=== PATIENT | female | born 1930 | race Caucasian/White ===

== ENCOUNTER 2016-12-12 14:52 | Inpatient (IN) ==
[2016-12-12] MEDS ORDERED: Nitroglycerin 0.4 MG TAB.SUBL SL PRN (16:59)
[2016-12-12] MEDS ORDERED: Naloxone 0.4 MG/ML INJ IVP PRN (17:20)
[2016-12-12] MEDS ORDERED: Ondansetron 4 MG/2 ML VIAL IVP PRN (17:20)
[2016-12-12] MEDS ORDERED: *HR* Morphine 2 MG/ML SYRINGE IVP PRN (17:20)
[2016-12-12] MEDS ORDERED: Dextrose Gel 15 GM PO PRN ×2 (17:56)
[2016-12-12] MEDS ORDERED: *HR* Dextrose 50 % in Water (Syg) 50 ML SYRINGE IVP PRN (17:56)
[2016-12-12] MEDS ORDERED: D5% in Water 1,000 ML IVC PRN (17:56)
[2016-12-12] MEDS ORDERED: 0.9 % Sodium Chloride 1,000 ML IVC SCH (18:00)
--- NOTE | 2016-12-12 18:06 | Internal Med History&Physical ---
<Bhupinder Neil - Last Filed: 12/12/16 18:30> Date of Encounter: 12/12/16 Time of Encounter: 17:59 Assessment and Plan (1) Hip fracture Current visit: Yes Status: Acute Patient suffered ground level fall this afternoon resulting in an impacted subcapital femoral neck fracture with anterior apex angulation. She is to undergo surgical procedure to fix tomorrow. Admit to inpatient Continuous telemetry Continuous SPO2 monitoring Continuous oxygen therapy to titrate SPO2 above 92% Maintain bedrest Placement of a catheter, send urinalysis Start cardiac/diabetic diet. Nothing by mouth after midnight for surgery in the morning Start 0.9% normal saline IV fluid at 60 mL per hour [place] one tablet when necessary every 4 hours for moderate pain Morphine 1 mg every 4 hours when necessary for severe pain Zofran for nausea BMP, CBC in the a.m. DVT prophylaxis-start mechanical prophylaxis for now. Plan is to implement Lovenox 40 mg subcutaneous postoperative surgery. Instead of 40 mg subcutaneous Lovenox daily 0600 Preop risk factors were reviewed. Pertinent comorbidities include coronary artery disease, diabetes mellitus, COPD. On chart review and from patient review there is not any admissions for respiratory failure. Coronary artery disease history includes LA 2, one in 2000 and one in 2006, she has a total of 4 stents no recent heart history. Most recent echo in 2012 shows an EF of 65%. Perioperatively the patient is at moderate risk due to cardiopulmonary history for an intermediate risk procedure. Qualifiers: Encounter type: initial encounter Fracture type: closed Laterality: left Qualified Code(s): S72.002A - Fracture of unspecified part of neck of left femur, initial encounter for closed fracture (2) Diabetes mellitus Current visit: Yes Status: Chronic Patient has history of chronic type 2 diabetes that is managed with long-acting GLARGINE insulin 6 units every morning. Plan is continue home dose of glargine , and add low-dose sliding scale insulin coverage, before meals at bedtime Accu- Cheks, diabetic/cardiac diet. Hypoglycemia protocol implemented. Qualifiers: Diabetes mellitus type: type 2 Diabetes mellitus complication status: without complication Diabetes mellitus intermediate insulin use: with intermediate use Qualified Code(s): E11.9 - Type 2 diabetes mellitus without complications ; Z79.4 - long term care phlebotomist (current) use of insulin (3) DVT prophylaxis Current visit: Yes Status: Acute Due to fracture patient is expected to have prolonged bedrest and immobility. This places her at high risk for DVT. She will be placed on Lovenox subcutaneous 40 mg daily. However at this time she will be placed on mechanical DVT prophylaxis and Lovenox will not be started until tomorrow evening after surgery Internal Medicine - H&P: HPI Chief complaint: Fall resulting in a hip fracture Admitted From: Home Plans for Post Hospital Care: Transfer Inp Rehab Fac History of present illness: Ms. Isaacs is a 86 year old female with a PMH of arthritis, COPD, asthma, CAD with LA in 2000 in 2006 resulting in 4 stents, dementia, type 2 diabetes, fibromyalgia, GERD, HTN, hypothyroidism, depression. Additionally she has had a right total hip arthroplasty, left knee arthroscopy, cataract surgery, cholecystectomy, appendectomy, tonsillectomy,DNC. She is being admitted to [facility] from [facility] is a result of a ground-level fall resulting in hip fracture. All information obtained from chart review and patient report. She reports that she is dependent upon a walker for ambulation , however, she was visiting a nursing facility and using her mobility scooter and forgot her walker. She attempted to ambulate a few steps to a chair without the assistance of her walker, resulting in a fall and subsequent fracture. She denies hitting her head or losing consciousness. Pain was initially 8-10 upon arrival to [facility]; she was given morphine and pain is 2- 10 upon arrival to [facility]. CT of pelvis revealed impacted subcapital femoral neck fracture with anterior apex angulation. Additionally she has a previous right total hip replacement from 1992. CT revealed no fractures in Rt hip. While being assessed she denied any chest pain, shortness of breath, weakness, dizziness, vision changes, or syncopal/near syncopal events. She is being admitted to the [facility] for further workup and evaluation Past Med Surg Social Fam HX - Past Medical History Medical history: arthritis, COPD, coronary artery disease, dementia, diabetes, fibromyalgia, GERD, hypertension, kidney stones, thyroid disease, other Psychiatric history: depression - Past Surgical History Surgical History: hip replacement - Social History Smoking Status: Never smoker Smokeless Tobacco Status: No Alcohol use: none Drug use: none - Family History Sister Living Status: Hx Family Cardiac Disorders: Yes Hx Family Cancer: Yes (lung) - Additional Family History Additional family history: Noncontributory Internal Medicine - H&P: Meds Aspirin [Adult Low Dose Aspirin EC] 81 mg PO DAILY 07/08/15 [History] Atorvastatin [Lipitor] 40 mg PO HS 07/08/15 [History] Gabapentin [Neurontin] 600 mg PO TID 07/08/15 [History] Insulin Glargine,Hum.rec.anlog [Lantus Solostar] 6 unit SQ DAILY 07/08/15 [ History] Isosorbide MONOnitrate (24 HR) [Imdur] 15 mg PO DAILY 07/08/15 [History] Albuterol Sulfate [Albuterol Inhaler] 1 puff IH Q4H PRN #0 aerosol 03/20/16 [Rx] Melatonin 10 mg PO HS tablet 03/20/16 [Rx] Levothyroxine [Synthroid] 150 mcg PO 0630 10/06/16 [History] Ascorbic Acid [Vitamin C] 1 ml PO DAILY 12/12/16 [History] Biotin 5 mg PO DAILY 12/12/16 [History] Calcium Citrate/Vitamin D3 [Calcium Citrate - Vit D Caplet] 1 each PO DAILY [History] Cholecalciferol (D-3) [Vitamin D] 2,000 unit PO DAILY 12/12/16 [History] Cranberry Conc/C/Bacill Coag [Cranberry Tablet] 125 mg PO DAILY 12/12/16 [ History] Cyanocobalamin (Vitamin B-12) [Vitamin B12] 500 mcg PO DAILY 12/12/16 [History] DULoxetine [Cymbalta] 90 mg PO DAILY 12/12/16 [History] Folic Acid [FA-8] 0.8 mg PO DAILY 12/12/16 [History] Lactobacillus Combination No.9 [Adult 50 + Probiotic] 1 each PO DAILY 12/12/16 [ History] Metoprolol Succinate [Metoprolol Succinate] 25 mg PO DAILY 12/12/16 [History] Multivit-Min/Iron/Folic/Lutein [Centrum Silver Women Tablet] 1 each PO DAILY [History] Nitroglycerin [Nitrostat] 0.4 mg SL AD PRN 12/12/16 [History] Omeprazole [PriLOSEC] 40 mg PO DAILY 08/13/17 [History] Allergies nitrofurantoin [From Macrobid] Allergy (Verified 12/12/16 13:41) Rash Penicillins Allergy (Verified 12/12/16 13:41) Anaphylaxis Sulfa (Sulfonamide Antibiotics) Allergy (Verified 12/12/16 13:41) Rash azithromycin [From Zithromax] Adverse Reaction (Verified 12/12/16 13:41) Nausea doxycycline Adverse Reaction (Verified 12/12/16 13:41) Diarrhea All Systems PM: A 10-system review of systems was performed and is negative for pertinent findings except as documented above in the HPI. - Constitutional Constitutional: weakness (Admits to weakness, however states that it is ongoing and attributed to age), no chills, no fever(s), no night sweats - EENT Eyes: no blurry vision, no change in vision, no discharge, no loss of vision, no pain, no photophobia Additional comments: Denies any new changes in vision or loss of vision Ears: no ear discharge, no ear pain, no tinnitus Nose, mouth and throat: no dysphagia, no nasal discharge, no neck pain, no sore throat - Cardiovascular Cardiovascular ROS IM: no chest pain, no diaphoresis, no dyspnea, no dyspnea on exertion, no edema, no lightheadedness, no palpitations, no syncope - Respiratory Respiratory: no cough, no dyspnea, no dyspnea on exertion, no wheezing, no chest congestion, no excessive phlegm production - Gastrointestinal Gastrointestinal: no abdominal pain, no diarrhea, no hematemesis, no hematochezia, no melena, no nausea, no vomiting - Genitourinary Genitourinary: no change in urinary stream, no dysuria, no flank pain, no hematuria - Musculoskeletal Musculoskeletal ROS IM: as per HPI, no numbness, no tingling - Integumentary Integumentary IM: no rash, no unusual bruising - Neurological Neurological ROS: weakness, no confusion, no convulsions, no disequilibrium, no dizziness, no focal weakness, no headache(s), no numbness, no tingling, no tremor(s) - Hematologic/Lymphatic Hematologic/Lymphatic: no easy bruising - Constitutional Vitals: Temp Pulse Resp BP Pulse Ox 97.8 F 86 16 164/56 98 12/12/16 16:37 12/12/16 16:37 12/12/16 16:37 12/12/16 16:37 12/12/16 16:37 General appearance: Present: cooperative, A&O X 3, pleasant, no acute distress, answers questions appropriately - Head Head exam: Present: atraumatic, normocephalic - Eye Eye exam: Present: EOMI, PERRL, conjuntiva pink, sclera anicteric. Absent: periorbital swelling Pupils: Present: PERRL - Neck Neck exam general surgery: Present: full ROM, normal inspection, supple, trachea midline. Absent: lymphadenopathy, tenderness - Respiratory Respiratory exam: Present: CTAB. Absent: accessory muscle use, rales, rhonchi, wheezes - Cardiovascular Cardiovascular exam: Present: bradycardia (Bradycardic upon examination, however , patient notes this is her normal. Denies any chest pain, discomfort or shortness of breath.), RRR, +S1, +S2. Absent: diastolic murmur, gallop, rubs, systolic murmur - GI/Abdominal GI/Abdominal exam: Present: normal bowel sounds, soft, no peritoneal signs. Absent: distended, tenderness - Extremities Exam Extremities exam: Present: warm, radial pulses palpable and symmetrical. Absent : calf tenderness, cyanotic, pedal edema Additional comments: There is mild swelling and tenderness noted along the left hip. No obvious deformities. Patient was unable to move her left lower extremity through range of motion exercises as it was too painful. No circulatory compromise noted. Strong palpable pulses noted from femoral artery down to pedal. - Expanded Lower Extremities Exam Lower Leg exam: Present: swelling, tenderness. Absent: ecchymosis - Neurological Exam Neurological exam: Present: alert, CN II-XII intact, oriented X3, no focal deficits. Absent: altered, normal gait (Admits to shuffling gait due to lower extremity weakness. According to patient's her baseline and not new. Gait requires the use of a walker for mobility scooter), pronater drift, facial droop , speech deficit - Skin Skin exam: Present: dry, intact Internal Med - H&P Results - Diagnostic Studies CT scan - pelvis Additional comments: CT of pelvis reveals impacted subcapital femoral neck fracture with anterior apex angulation as identified per radiology report. Chest x-ray Additional comments: Chest x-ray reveals no acute pulmonary process <Chago Arechiga - Last Filed: 12/13/16 18:36> Date of Encounter: 12/13/16 Internal Medicine - H&P: HPI History of present illness: Ms. Isaacs is a 86 year old female All Systems PM: A 10-system review of systems was performed and is negative for pertinent findings except as documented above in the HPI. - Constitutional Vitals: Temp Pulse Resp BP Pulse Ox 99.5 F 104 18 112/67 99 12/13/16 14:47 12/13/16 14:47 12/13/16 14:47 12/13/16 14:47 12/13/16 14:47 Internal Med - H&P Results - Labs CBC & Chem 7: 12/13/16 17:18 12/13/16 01:19 Labs: Short CBC 12/13/16 12/13/16 Range/Units 01:19 17:18 WBC 20.5 H D 17.6 H (4.3-11.1) K/mcL Hgb 10.7 L 10.9 L (11.5-15.4) g/dL Hct 35.5 35.6 (35.3-44.9) % Plt Count 163 145 (140-400) K/mcL Neutrophils # 17.8 H (1.6-8.9) K/mcL BMP 12/13/16 01:19 Sodium 135 L Potassium 4.4 Chloride 103 Carbon Dioxide 23 BUN 18 Creatinine 0.86 Glucose 166 H Calcium 8.4 L Liver Function 12/13/16 Range/Units 01:19 Total Bilirubin < 0.3 (0.2-1.2) mg/dL AST 47 H (5-34) Units/L ALT 31 (0-55) Units/L Alkaline Phosphatase 124 (38-126) Units/L Albumin 2.9 L (3.5-5.0) g/dL - Attending Attestation I examined this patient and my medical decision-making was reviewed with the WET SUIT GLUER. I agree with the documented findings, disposition and treatment plan as described
[2016-12-12 18:20] LABS: Bilirubin,Urine Negative (Negative); Blood,Urine Negative (Negative); Clarity,Urine Clear (Clear); Color,Urine Yellow (Yellow); Glucose,Urine (UA) Normal (Normal); Ketones,Urine Negative (Negative); Leukocyte Esterase,Urine Trace (Negative); Nitrite,Urine Negative (Negative); Protein,Urine Negative (Neg-Trace); Specific Gravity,Urine 1.011 (1.010-1.025); Urobilinogen,Urine Normal (Normal)
[2016-12-12 18:22] LABS: Bacteria,Urine None Seen per hpf (None-Few); Hyaline Casts,Urine None Seen per lpf (None-Few); RBC,Urine 0-3 per hpf (0-3); Squamous Epithelial Cell,Urine Moderate per lpf (None-Few)
[2016-12-12] MEDS ORDERED: Ipratropium/Albuterol Neb 3 ML IH PRN (18:53)
[2016-12-12] MEDS ORDERED: *HR* Morphine 2 MG/ML SYRINGE IVP ONE ×2 (19:03→19:07)
[2016-12-12] MEDS: *HR* HYDROcodone/Acet 5/325 mg TABLET PO PRN (21:23)
[2016-12-12] MEDS: Insulin LISPRO 300 UNITS/3 ML VIAL SQ SCH (21:25)
[2016-12-12] MEDS: Gabapentin 300 MG CAPSULE PO SCH (21:27)
[2016-12-12] MEDS: Melatonin 3 MG TABLET PO SCH (21:27)
[2016-12-12] MEDS ORDERED: Albuterol 2.5 MG/3 ML NEBULIZER IH PRN (22:49)
[2016-12-13 03:29] LABS: Alanine Aminotransferase 31 Units/L (0-55); Albumin 2.9 g/dL (3.5-5.0); Albumin/Globulin Ratio 0.9 (1.1-2.2); Alkaline Phosphatase 124 Units/L (38-126); Aspartate Amino Transferase 47 Units/L (5-34); BUN/Creatinine Ratio 21 (6-26); Blood Urea Nitrogen 18 mg/dL (7-20); Calcium 8.4 mg/dL (8.6-10.8); Carbon Dioxide 23 mEq/L (19-29); Chloride 103 mEq/L (98-109); Chol/HDL Ratio 2.3 (0-4.9); Cholesterol 112 mg/dL (< 200); Globulin 3.4 g/dL (2.4-3.5); Glucose 166 mg/dL (70-99); HDL Cholesterol 49 mg/dL (40-59); LDL Cholesterol,Calculated 53 mg/dL (0-99); Osmolality,Calculated 286 (280-300); Sodium 135 mEq/L (136-145); Total Protein 6.3 g/dL (6.0-8.3); Triglycerides 51 mg/dL (< 150); eGFR For African Americans > 60 (> 60); eGFR For Non-African Americans > 60 (> 60)
[2016-12-13 03:35] LABS: Bilirubin,Total < 0.3 mg/dL (0.2-1.2)
[2016-12-13 03:37] LABS: Potassium 4.4 mEq/L (3.5-4.5)
[2016-12-13 03:48] LABS: Basophils % 0.2 %; Eosinophils # 0.4 K/mcL (0.0-0.6); Eosinophils % 1.7 %; Hematocrit 35.5 % (35.3-44.9); Hemoglobin 10.7 g/dL (11.5-15.4); Immature Granulocytes % 0.5 % (0-4); Lymphocytes # 1.1 K/mcL (0.6-4.6); Lymphocytes % 5.4 %; Mean Corpuscular HGB Conc 30.1 g/dL (31.6-35.5); Mean Corpuscular Hemoglobin 28.1 pg (28.0-33.3); Mean Corpuscular Volume 93.2 fL (83.0-100.0); Monocytes # 1.1 K/mcL (0.0-1.3); Monocytes % 5.4 %; Neutrophils # 17.8 K/mcL (1.6-8.9); Platelet Count 163 K/mcL (140-400); Red Blood Count 3.81 M/mcL (3.82-4.97); Red Cell Distribution Width 14.3 % (11.5-14.5); Segmented Neutrophils % 86.8 %
[2016-12-13] MEDS: Insulin LISPRO 300 UNITS/3 ML VIAL SQ SCH ×4 (07:57→21:17)
[2016-12-13] MEDS: Insulin DETEMIR 100 UNIT/ML X5UNITS SQ SCH (08:57)
[2016-12-13] MEDS: Aspirin Enteric Coated 81 MG Tablet PO SCH (08:57)
[2016-12-13] MEDS: Metoprolol XL (24 HR) Succ 25 MG TAB.ER.24H PO SCH (09:16)
[2016-12-13] MEDS: (Biotin [Biotin] 5 MG) PO SCH (09:16)
[2016-12-13] MEDS: Isosorbide MONOnitrate (24 HR) 30 MG TAB.ER.24H PO SCH (09:16)
[2016-12-13] MEDS: (Folic Acid [Fa-8] 0.8 MG) PO SCH (09:16)
[2016-12-13] MEDS: Gabapentin 300 MG CAPSULE PO SCH ×3 (09:16→21:03)
[2016-12-13] MEDS: Lactobacillus 1 EACH CAP.SPRINK PO SCH (09:16)
--- NOTE | 2016-12-13 10:13 | Electrocardiograph Report ---
[address] [address] Test Date: 2016-12-12 Pat Name: September Department: 114 Room: [facility] Gender: F Sales Advisory Manager: [id number] : 1930 Requested By: Bhupinder Neil Order Number: [id number] Reading MD: Mendez Lopez MD Measurements Intervals [place] Rate: 72 P: 58 KS: 157 QRS: -11 QRSD: 109 T: 75 QT: 417 QTc: 441 Interpretive Statements SINUS RHYTHM WITH FREQUENT SUPRAVENTRICULAR PREMATURE COMPLEXES BASELINE ARTIFACT Electronically Signed On 12-13-2016 10:11:38 EDT by Mendez Lopez MD
[2016-12-13] MEDS: *HR* HYDROcodone/Acet 5/325 mg TABLET PO PRN ×2 (10:15→21:03)
[2016-12-13] MEDS: *HR* Morphine 2 MG/ML SYRINGE IVP PRN ×2 (10:54→17:07)
--- NOTE | 2016-12-13 13:03 | Orthopedic Consult Note ---
Date of Encounter: 12/13/16 Time of Encounter: 08:00 Assessment and Plan (1) Hip fracture, left Current Visit: Yes Status: Acute Patient has left femoral neck fracture which will require surgical fixation. Plan for Dr. Leung to perform left hip pinning today pending medical clearance. Echo pending currently. Discussed with patient the procedure as well as r/b/a. Patient expressed understanding and all questions answered. Consent obtain and placed in patient chart. NPO today until surgery. If not cleared today, make NPO after midnight tonight. Pain control per hospitalist. Qualifiers: Qualified Code(s): S72.002A - Fracture of unspecified part of neck of left femur, initial encounter for closed fracture History of Present Illness Chief complaint: left hip pain HPI: Ms. Isaacs is a 86 year old female who was admitted for left hip pain. States she usually uses a scooter to get around. She tried to get up from her scooter yesterday but fell after a couple steps because she has neuropathy and did not feel her feet on the ground when she got up. States she fell on her knees first and then fell to her left side hitting her hip and had instant pain in left hip that did not radiate down leg or to back. No pain in knees more than her normal arthritis pain. Denies hitting head or LOC. Currently she does not have any pain with the medication. She does have long cardiac history but denies any chest pain, denies SOB more than normal, or fevers. Past Med Surg Social Fam HX - Past Medical History Medical history: arthritis, COPD, coronary artery disease, dementia, diabetes, fibromyalgia, GERD, hypertension, kidney stones, thyroid disease, other Psychiatric history: depression - Past Surgical History Surgical History: hip replacement - Social History Smoking Status: Never smoker Smokeless Tobacco Status: No Alcohol use: none Drug use: none - Family History Sister Living Status: Hx Family Cardiac Disorders: Yes Hx Family Cancer: Yes (lung) Medications and Allergies Aspirin [Adult Low Dose Aspirin EC] 81 mg PO DAILY 07/08/15 [History] Atorvastatin [Lipitor] 40 mg PO HS 07/08/15 [History] Gabapentin [Neurontin] 600 mg PO TID 07/08/15 [History] Insulin Glargine,Hum.rec.anlog [Lantus Solostar] 6 unit SQ DAILY 07/08/15 [ History] Isosorbide MONOnitrate (24 HR) [Imdur] 15 mg PO DAILY 07/08/15 [History] Albuterol Sulfate [Albuterol Inhaler] 1 puff IH Q4H PRN #0 aerosol 03/20/16 [Rx] Melatonin 10 mg PO HS tablet 03/20/16 [Rx] Levothyroxine [Synthroid] 150 mcg PO 0630 10/06/16 [History] Ascorbic Acid [Vitamin C] 1 ml PO DAILY 12/12/16 [History] Biotin 5 mg PO DAILY 12/12/16 [History] Calcium Citrate/Vitamin D3 [Calcium Citrate - Vit D Caplet] 1 each PO DAILY [History] Cholecalciferol (D-3) [Vitamin D] 2,000 unit PO DAILY 12/12/16 [History] Cranberry Conc/C/Bacill Coag [Cranberry Tablet] 125 mg PO DAILY 12/12/16 [ History] Cyanocobalamin (Vitamin B-12) [Vitamin B12] 500 mcg PO DAILY 12/12/16 [History] DULoxetine [Cymbalta] 90 mg PO DAILY 12/12/16 [History] Folic Acid [FA-8] 0.8 mg PO DAILY 12/12/16 [History] Lactobacillus Combination No.9 [Adult 50 + Probiotic] 1 each PO DAILY 12/12/16 [ History] Metoprolol Succinate [Metoprolol Succinate] 25 mg PO DAILY 12/12/16 [History] Multivit-Min/Iron/Folic/Lutein [Centrum Silver Women Tablet] 1 each PO DAILY [History] Nitroglycerin [Nitrostat] 0.4 mg SL AD PRN 12/12/16 [History] Omeprazole [PriLOSEC] 40 mg PO DAILY 12/12/16 [History] Allergies nitrofurantoin [From Macrobid] Allergy (Verified 12/12/16 13:41) Rash Penicillins Allergy (Verified 12/12/16 13:41) Anaphylaxis Sulfa (Sulfonamide Antibiotics) Allergy (Verified 12/12/16 13:41) Rash azithromycin [From Zithromax] Adverse Reaction (Verified 12/12/16 13:41) Nausea doxycycline Adverse Reaction (Verified 12/12/16 13:41) Diarrhea All Systems Reviewed: A 10-system review of systems was performed and is negative for pertinent findings except as documented above in the HPI. - Constitutional Constitutional: as per HPI - Cardiovascular Cardiovascular: as per HPI - Respiratory Respiratory: as per HPI - Musculoskeletal Musculoskeletal: as per HPI Physical Exam - Constitutional Vitals: Temp Pulse Resp BP Pulse Ox 98.2 F 76 20 153/75 93 12/13/16 10:31 12/13/16 10:31 12/13/16 10:31 12/13/16 10:31 12/13/16 10:31 - Hip left Tenderness with palpation: anterior (No open wounds or lesions to left hip. LLE held in external rotation. Tenderness to palpation along anterior and lateral left hip. No calf tenderness to palpation. Good dorsiflexion of foot. grosly NV intact.) Results - Labs Result Diagrams: 12/13/16 01:19 12/13/16 01:19 Labs: Abnormal lab results WBC 20.5 K/mcL (4.3-11.1) H D 12/13/16 01:19 RBC 3.81 M/mcL (3.82-4.97) L 12/13/16 01:19 Hgb 10.7 g/dL (11.5-15.4) L 12/13/16 01:19 MCHC 30.1 g/dL (31.6-35.5) L 12/13/16 01:19 Neutrophils # 17.8 K/mcL (1.6-8.9) H 12/13/16 01:19 Sodium 135 mEq/L (136-145) L 12/13/16 01:19 Glucose 166 mg/dL (70-99) H 12/13/16 01:19 POC Glucose 139 (58-89) H 12/12/16 17:19 Calcium 8.4 mg/dL (8.6-10.8) L 12/13/16 01:19 AST 47 Units/L (5-34) H 12/13/16 01:19 Albumin 2.9 g/dL (3.5-5.0) L 12/13/16 01:19 Albumin/Globulin Ratio 0.9 (1.1-2.2) L 12/13/16 01:19 Ur Leukocyte Esterase Trace (Negative) H 12/12/16 17:28 Urine Microscopic WBC 3-5 per hpf (0-3) H 12/12/16 17:28 Ur Squamous Epith Cells Moderate per lpf (None-Few) H 12/12/16 17:28 H & H 12/13/16 Range/Units 01:19 Hgb 10.7 L (11.5-15.4) g/dL Hct 35.5 (35.3-44.9) % All other labs normal. - Diagnostic results Hip CT: report reviewed, image reviewed Consult Discharge Plan - Plan Referrals: Camacho Florence MD [Primary Care Provider] - - Attending Attestation Case and plan of care discussed with supervising physician who was available for all aspects of care.
--- NOTE | 2016-12-13 17:04 | Internal Med Progress Note ---
Date of Encounter: 12/13/16 Time of Encounter: 09:00 - Assessment and plan (1) Hip fracture, left Current Visit: Yes Status: Acute Assessment and plan: Acute left hip femoral neck fracture. Pain is well controlled at this time. Requires surgical fixation. We will get 2-D echocardiogram prior to surgery to evaluate ejection fraction as patient has had history of coronary artery disease and stents. Moderate risk for complications. On DVT prophylaxis Qualifiers: Encounter type: initial encounter Fracture type: closed Qualified Code(s) : S72.002A - Fracture of unspecified part of neck of left femur, initial encounter for closed fracture (2) Coronary artery disease Current Visit: Yes Status: Chronic Assessment and plan: patient has a history of coronary artery disease. Denies any chest pain. On aspirin, statin and metoprolol. Will continue these medications. Qualifiers: Coronary Disease-Associated Artery/Lesion type: [place] artery [place] vs. transplanted heart: [place] heart Associated angina: without angina Qualified Code(s): I25.10 - Atherosclerotic heart disease of [place] coronary artery without angina pectoris (3) COPD (chronic obstructive pulmonary disease) Current Visit: Yes Status: Chronic Assessment and plan: Chronic condition. Not in acute exacerbation. We will use O2 supplementation as needed. Place patient on bronchodilators as needed. Qualifiers: COPD type: unspecified COPD Qualified Code(s): J44.9 - Chronic obstructive pulmonary disease, unspecified (4) Diabetes mellitus Current Visit: Yes Status: Chronic Assessment and plan: Blood sugars are well controlled. Qualifiers: Diabetes mellitus type: type 2 Diabetes mellitus complication status: without complication Diabetes mellitus senior living insulin use: with senior living use Qualified Code(s): E11.9 - Type 2 diabetes mellitus without complications ; Z79.4 - intermediate manager (current) use of insulin (5) Hypertension Current Visit: Yes Status: Chronic Assessment and plan: Blood pressure is well controlled Qualifiers: Hypertension type: essential hypertension Qualified Code(s): I10 - Essential (primary) hypertension (6) Leukocytosis Current Visit: Yes Status: Acute Assessment and plan: With neutrophilia. Uncertain etiology. Could be related to acute fracture. No current indication for antibiotics. We will follow WBC count. If patient develops fever or leukocytosis worsens, we will start patient on broad-spectrum antibiotics. Qualifiers: Leukocytosis type: other Qualified Code(s): D72.828 - Other elevated white blood cell count - Subjective Interval history: Patient continues to have some pain in left which is controlled as long as patient does not move. Denies any shortness of breath. No chest pain. No palpitations. No fever reported overnight. - Constitutional Vitals: Temp Pulse Resp BP Pulse Ox 99.5 F 104 18 112/67 99 12/13/16 14:47 12/13/16 14:47 12/13/16 14:47 12/13/16 14:47 12/13/16 14:47 General appearance: Present: cooperative, A&O X 3, pleasant, no acute distress, answers questions appropriately - Respiratory Respiratory exam: Present: CTAB. Absent: accessory muscle use, rales, rhonchi, wheezes - Cardiovascular Cardiovascular exam: Present: RRR, +S1, +S2. Absent: diastolic murmur, gallop, rubs, systolic murmur - GI/Abdominal GI/Abdominal exam: Present: normal bowel sounds, soft, no peritoneal signs. Absent: distended, tenderness - Extremities Exam Extremities exam: Present: tenderness (Tenderness with decreased range of motion left hip), warm, radial pulses palpable and symmetrical. Absent: calf tenderness, cyanotic, pedal edema Internal Medicine: Result - Labs CBC & Chem 7: 12/13/16 01:19 12/13/16 01:19 Labs: Short CBC 12/13/16 Range/Units 01:19 WBC 20.5 H D (4.3-11.1) K/mcL Hgb 10.7 L (11.5-15.4) g/dL Hct 35.5 (35.3-44.9) % Plt Count 163 (140-400) K/mcL Neutrophils # 17.8 H (1.6-8.9) K/mcL BMP 12/13/16 01:19 Sodium 135 L Potassium 4.4 Chloride 103 Carbon Dioxide 23 BUN 18 Creatinine 0.86 Glucose 166 H Calcium 8.4 L Liver Function 12/13/16 Range/Units 01:19 Total Bilirubin < 0.3 (0.2-1.2) mg/dL AST 47 H (5-34) Units/L ALT 31 (0-55) Units/L Alkaline Phosphatase 124 (38-126) Units/L Albumin 2.9 L (3.5-5.0) g/dL Urine 08/13/17 Range/Units 17:28 Urine Color Yellow (Yellow) Urine Clarity Clear (Clear) Urine pH 6.0 (5.0-8.0) pH Units Ur Specific [place] 1.011 (1.010-1.025) Urine Protein Negative (Neg-Trace) mg/dL Urine Glucose (UA) Normal (Normal) mg/dL Consult Discharge Plan - Plan Referrals: Camacoh Florence MD [Primary Care Provider] -
[2016-12-13] MEDS: *HR* Enoxaparin 40 MG/0.4 ML SYRINGE SQ SCH (17:09)
[2016-12-13 17:33] LABS: Hematocrit 35.6 % (35.3-44.9); Hemoglobin 10.9 g/dL (11.5-15.4); Mean Corpuscular HGB Conc 30.6 g/dL (31.6-35.5); Mean Corpuscular Hemoglobin 28.6 pg (28.0-33.3); Mean Corpuscular Volume 93.4 fL (83.0-100.0); Mean Platelet Volume 11.9 fL (9.4-12.4); Platelet Count 145 K/mcL (140-400); Red Blood Count 3.81 M/mcL (3.82-4.97); Red Cell Distribution Width 14.2 % (11.5-14.5)
--- NOTE | 2016-12-13 20:01 | Anesthesia Evaluation PreOp ---
Date of Encounter: 12/13/16 Time of Encounter: 21:01 - Past History Planned Operation: L-Hip Pinning Cardiac History: [place] (2000 & 2006), CHF (Hx of CHF in 2014), HTN (maintained on Imdur, Metoprolol), Hyperlipidemia (maintained on Atorvastatin), Cardiac Stent ( Stents x 4, last one placed 2006. Maintained on daily ASA), Other (ECHO 2016 - LVEF 65-70%, MIld LVH, Mild diastolic dysfx, Moderate -Severe TR. No SWMA. Sinus Rhythm w/Freq PACs) Pulmonary History: COPD (maintained on Albuterol), Other (Severe Pulmonary HTN per Echo 12/13/2016: RVSP = 67mmHg) COMMUNICATIONS ASSOCIATE History: Other (Dementia, Fibromyalgia maintained on Gabapentin. Depression maintained on Cymbalta) Other Medical History: Diabetes Type II (maintained on Latnus), Thyroid ( Hypothyroidism maintained on Synthroid), GERD Anesthesia History: No Prior Anesthetic Complications, Past Anesthesia (R-Total Hip, L-knee scope, ctaracts, Doris, Appy, T&A, D&C) Alcohol Use: none Drug use: none Medications and Allergies Aspirin [Adult Low Dose Aspirin EC] 81 mg PO DAILY 07/08/15 [History] Atorvastatin [Lipitor] 40 mg PO HS 07/08/15 [History] Gabapentin [Neurontin] 600 mg PO TID 07/08/15 [History] Insulin Glargine,Hum.rec.anlog [Lantus Solostar] 6 unit SQ DAILY 07/08/15 [ History] Isosorbide MONOnitrate (24 HR) [Imdur] 15 mg PO DAILY 07/08/15 [History] Albuterol Sulfate [Albuterol Inhaler] 1 puff IH Q4H PRN #0 aerosol 03/20/16 [Rx] Melatonin 10 mg PO HS tablet 03/20/16 [Rx] Levothyroxine [Synthroid] 150 mcg PO 0630 10/06/16 [History] Ascorbic Acid [Vitamin C] 1 ml PO DAILY 12/12/16 [History] Biotin 5 mg PO DAILY 12/12/16 [History] Calcium Citrate/Vitamin D3 [Calcium Citrate - Vit D Caplet] 1 each PO DAILY [History] Cholecalciferol (D-3) [Vitamin D] 2,000 unit PO DAILY 12/12/16 [History] Cranberry Conc/C/Bacill Coag [Cranberry Tablet] 125 mg PO DAILY 12/12/16 [ History] Cyanocobalamin (Vitamin B-12) [Vitamin B12] 500 mcg PO DAILY 12/12/16 [History] DULoxetine [Cymbalta] 90 mg PO DAILY 12/12/16 [History] Folic Acid [FA-8] 0.8 mg PO DAILY 12/12/16 [History] Lactobacillus Combination No.9 [Adult 50 + Probiotic] 1 each PO DAILY 12/12/16 [ History] Metoprolol Succinate [Metoprolol Succinate] 25 mg PO DAILY 12/12/16 [History] Multivit-Min/Iron/Folic/Lutein [Centrum Silver Women Tablet] 1 each PO DAILY [History] Nitroglycerin [Nitrostat] 0.4 mg SL AD PRN 12/12/16 [History] Omeprazole [PriLOSEC] 40 mg PO DAILY 12/12/16 [History] Allergies nitrofurantoin [From Macrobid] Allergy (Verified 12/12/16 13:41) Rash Penicillins Allergy (Verified 12/12/16 13:41) Anaphylaxis Sulfa (Sulfonamide Antibiotics) Allergy (Verified 12/12/16 13:41) Rash azithromycin [From Zithromax] Adverse Reaction (Verified 12/12/16 13:41) Nausea doxycycline Adverse Reaction (Verified 12/12/16 13:41) Diarrhea - Meds/Allergy Pre-op Review Medications Reviewed: Yes Allergies Reviewed: Yes Anesthesia Results - Labs 12/13/16 17:18 12/13/16 01:19 Laboratory Tests 11/23/16 12/12/16 12/13/16 10:01 15:00 01:19 PT 12.3 H INR 1.1 Est GFR (Non-Af Amer) > 60 POC Glucose Est Mean Plasma Glucose 163 Hemoglobin A1c 7.3 H Calcium 8.4 L 12/13/16 16:19 PT INR Est GFR (Non-Af Amer) POC Glucose 89 Est Mean Plasma Glucose Hemoglobin A1c Calcium Laboratory Results Impressions Chest CTA 12/13/16 17:00 IMPRESSION: 1. No evidence of pulmonary embolism. 2. Thin-walled cavitary lesion at the right lung apex, measuring 1.5 x 1.0 cm with adjacent ground-glass opacities. The differential favors an infectious process. 3. There is a 5 mm sub solid nodular opacity in the right middle lobe, which could also be infectious in etiology. 4. Borderline enlarged mediastinal lymph nodes, which may be reactive. 5. Coronary atherosclerosis. 6. Unchanged calcified lesion in the hepatic dome, as well as severe intrahepatic biliary dilation. D/ / 12/13/2016 19:29:36 Jamal Arrieta MD / emma Interpreting Provider: Jamal Arrieta MD - Imaging EKG: image reviewed (62bpm SR w/occasional supraventriular premature complexes. Septal [place] of indeterminate age) Anesthesia Exam Vital Signs Temp Pulse Resp BP Pulse Ox 12/13/16 14:47 99.5 F 104 18 112/67 99 12/13/16 10:31 98.2 F 76 20 153/75 93 12/13/16 06:36 98.1 F 56 16 113/65 100 12/13/16 04:04 97.5 F L 62 14 123/74 99 12/12/16 23:52 99.1 F 86 18 110/69 99 12/12/16 20:19 98.4 F 77 18 121/66 95 Intake and Output 12/13/16 12/13/16 12/13/16 07:59 15:59 23:59 Output Total 600 / 600 700 / 700 Balance -600 / -600 -700 / -700 Output: Catheter 600 / 600 700 / 700 Other: Weight 65.4 kg Blood Glucose* 122 100 89 Patient Weight 12/13/16 23:59 Weight 65.4 kg - HEENT Pupil (Motor): Pupils equal, EOMI Mallampati: III Teeth: Missing, Poor dentition Oral Opening: Less than or equal to 3 (SMALL ORAL OPENING.) - COMMUNICATIONS ASSOCIATE LOC: Oriented COMMUNICATIONS ASSOCIATE Motor: Normal RUE, Normal LUE, Normal RLE, Normal Face, Deficit LLE COMMUNICATIONS ASSOCIATE Sensory: Normal: RUE, LUE, RLE, Face, Deficit: LLE - Cardiac Rhythm: Irregular Murmur: Systolic (5/6 Systolic Murmur best heard over LLSB) - Pulmonary Breath Sounds: bilateral Clear Respiratory Effort: Symmetrical Anesthesia Assess/Plan ASA Score: 4 (CAD, HTN, Chol, DM, Severe PulmHtn, COPD) Modified Radha Scale for Level of Consciousness: Cooperative, oriented, and tranquil Anesthetic Plan: General Monitoring Plan: Standard Monitors Recovery Plan: PACU Anes Supervising Prov Stmt: Pt seen/evaluated, R&B Discussed, questions answered and consent obtained. Enrique Rapp MD
[2016-12-13] MEDS: Melatonin 3 MG TABLET PO SCH (21:03)
[2016-12-14] MEDS: *HR* HYDROcodone/Acet 5/325 mg TABLET PO PRN ×2 (02:54→22:14)
[2016-12-14] MEDS: *HR* Enoxaparin 40 MG/0.4 ML SYRINGE SQ SCH (04:48)
[2016-12-14] MEDS: *HR* Morphine 2 MG/ML SYRINGE IVP PRN ×3 (05:51→19:58)
[2016-12-14 06:26] LABS: Basophils % 0.3 %; Eosinophils # 0.2 K/mcL (0.0-0.6); Eosinophils % 1.5 %; Hematocrit 33.4 % (35.3-44.9); Hemoglobin 10.4 g/dL (11.5-15.4); Immature Granulocytes % 0.3 % (0-4); Lymphocytes # 1.2 K/mcL (0.6-4.6); Lymphocytes % 7.5 %; Mean Corpuscular HGB Conc 31.1 g/dL (31.6-35.5); Mean Corpuscular Hemoglobin 28.5 pg (28.0-33.3); Mean Corpuscular Volume 91.5 fL (83.0-100.0); Mean Platelet Volume 11.7 fL (9.4-12.4); Monocytes # 1.2 K/mcL (0.0-1.3); Monocytes % 7.5 %; Neutrophils # 13.3 K/mcL (1.6-8.9); Platelet Count 151 K/mcL (140-400); Red Blood Count 3.65 M/mcL (3.82-4.97); Red Cell Distribution Width 14.3 % (11.5-14.5); Segmented Neutrophils % 82.9 %
[2016-12-14 06:42] LABS: BUN/Creatinine Ratio 22 (6-26); Blood Urea Nitrogen 20 mg/dL (7-20); Calcium 9.2 mg/dL (8.6-10.8); Carbon Dioxide 26 mEq/L (19-29); Chloride 100 mEq/L (98-109); Glucose 141 mg/dL (70-99); Osmolality,Calculated 283 (280-300); Potassium 4.2 mEq/L (3.5-4.5); Sodium 134 mEq/L (136-145); eGFR For African Americans > 60 (> 60); eGFR For Non-African Americans 59 (> 60)
[2016-12-14] MEDS: Insulin LISPRO 300 UNITS/3 ML VIAL SQ SCH ×3 (07:25→23:27)
[2016-12-14] MEDS ORDERED: Aminoglycoside Consult 1 EACH MC ONE (08:37)
[2016-12-14] MEDS: Insulin DETEMIR 100 UNIT/ML X5UNITS SQ SCH (08:55)
[2016-12-14] MEDS ORDERED: Vancomycin 1,000 MG in D5% in Water 250 ML IVPB SCH ×2 (09:26→10:00)
[2016-12-14] MEDS: Isosorbide MONOnitrate (24 HR) 30 MG TAB.ER.24H PO SCH (09:27)
[2016-12-14] MEDS: Gabapentin 300 MG CAPSULE PO SCH ×3 (09:27→19:59)
[2016-12-14] MEDS: Lactobacillus 1 EACH CAP.SPRINK PO SCH (09:27)
[2016-12-14] MEDS: (Biotin [Biotin] 5 MG) PO SCH (09:27)
[2016-12-14] MEDS: Aspirin Enteric Coated 81 MG Tablet PO SCH (09:27)
[2016-12-14] MEDS: (Folic Acid [Fa-8] 0.8 MG) PO SCH (09:27)
[2016-12-14] MEDS: Metoprolol XL (24 HR) Succ 25 MG TAB.ER.24H PO SCH (09:55)
[2016-12-14] MEDS ORDERED: Levofloxacin 750 MG/150 ML 750 MG/150 ML BAG IVPB SCH (10:00)
--- NOTE | 2016-12-14 11:08 | Internal Med Progress Note ---
Date of Encounter: 12/14/16 Time of Encounter: 10:55 - Assessment and plan (1) Hip fracture, left Current Visit: Yes Status: Acute Assessment and plan: Acute left hip femoral neck fracture. Pain control Scheduled for surgery later today orthopedic evaluation appreciated DVT ppx as per ortho after the surgery Moderate risk for complications Qualifiers: Encounter type: initial encounter Fracture type: closed Qualified Code(s) : S72.002A - Fracture of unspecified part of neck of left femur, initial encounter for closed fracture (2) Right middle lobe pneumonia Current Visit: Yes Status: Acute Assessment and plan: CTA chest concerning for PNA will start empiric IV abx therapy f/u blood cultures will closely monitor Qualifiers: Pneumonia type: due to unspecified organism Qualified Code(s): J18.1 - Lobar pneumonia, unspecified organism (3) Hypertension Current Visit: Yes Status: Chronic Assessment and plan: BP within acceptable range continue home meds Qualifiers: Hypertension type: essential hypertension Qualified Code(s): I10 - Essential (primary) hypertension (4) DM type 2 (diabetes mellitus, type 2) Current Visit: No Status: Chronic Assessment and plan: continue ss insulin algorithm monitor FS and BG ADA diet after surgery Qualifiers: Diabetes mellitus complication status: without complication Diabetes mellitus long term care administrator insulin use: with long term care administrator use Qualified Code(s): E11.9 - Type 2 diabetes mellitus without complications; Z79.4 - intermediate school teacher (current) use of insulin (5) Coronary artery disease Current Visit: Yes Status: Chronic Assessment and plan: patient has a history of coronary artery disease. Denies any chest pain. On aspirin, statin and metoprolol. Will continue these medications. Qualifiers: Coronary Disease-Associated Artery/Lesion type: [place] artery [place] vs. transplanted heart: [place] heart Associated angina: without angina Qualified Code(s): I25.10 - Atherosclerotic heart disease of [place] coronary artery without angina pectoris (6) COPD (chronic obstructive pulmonary disease) Current Visit: Yes Status: Chronic Assessment and plan: Chronic condition. Not in acute exacerbation. We will use O2 supplementation as needed. bronchodilators as needed. Qualifiers: COPD type: unspecified COPD Qualified Code(s): J44.9 - Chronic obstructive pulmonary disease, unspecified - Subjective Interval history: Pt seen and examined at bedside. Resting in bed and denies any discomfort at this time. CTA chest concerning for RML PNA for which she is started on IV abx. No PE reported. Pt awaiting surgical intervention for left femur fracture. No overnight issues reported. - Constitutional Vitals: Temp Pulse Resp BP Pulse Ox 98.3 F 71 18 111/62 96 12/14/16 10:56 12/14/16 10:56 12/14/16 10:56 12/14/16 10:56 12/14/16 10:56 General appearance: Present: cooperative, A&O X 3, pleasant, no acute distress, answers questions appropriately - Head Head exam: Present: atraumatic, normocephalic - Eye Eye exam: Present: conjuntiva pink, sclera anicteric - Respiratory Respiratory exam: Absent: respiratory distress, wheezes - Cardiovascular Cardiovascular exam: Present: RRR, +S1, +S2 - GI/Abdominal GI/Abdominal exam: Present: normal bowel sounds, soft, no peritoneal signs. Absent: distended, tenderness - Extremities Exam Extremities exam: Present: warm, radial pulses palpable and symmetrical - Neurological Exam Neurological exam: Present: alert, oriented X3 Internal Medicine: Result - Labs CBC & Chem 7: 12/14/16 06:12 12/14/16 06:12 Labs: Short CBC 12/13/16 12/14/16 Range/Units 17:18 06:12 WBC 17.6 H 16.0 H (4.3-11.1) K/mcL Hgb 10.9 L 10.4 L (11.5-15.4) g/dL Hct 35.6 33.4 L (35.3-44.9) % Plt Count 145 151 (140-400) K/mcL Neutrophils # 13.3 H (1.6-8.9) K/mcL BMP 12/14/16 06:12 Sodium 134 L Potassium 4.2 Chloride 100 Carbon Dioxide 26 BUN 20 Creatinine 0.90 Glucose 141 H Calcium 9.2 - Impressions Impressions Chest CTA 12/13/16 17:00 IMPRESSION: 1. No evidence of pulmonary embolism. 2. Thin-walled cavitary lesion at the right lung apex, measuring 1.5 x 1.0 cm with adjacent ground-glass opacities. The differential favors an infectious process. 3. There is a 5 mm sub solid nodular opacity in the right middle lobe, which could also be infectious in etiology. 4. Borderline enlarged mediastinal lymph nodes, which may be reactive. 5. Coronary atherosclerosis. 6. Unchanged calcified lesion in the hepatic dome, as well as severe intrahepatic biliary dilation. D/ / 12/13/2016 19:29:36 Jamal Arrieta MD / emma Interpreting Provider: Jamal Arrieta MD - VTE Documentation of Mechanical Device: Venous foot pump, device Consult Discharge Plan - Plan Referrals: Camacho Florence MD [Primary Care Provider] -
[2016-12-14] MEDS ORDERED: *HR* Phenylephrine 10 MG/ML VIAL ONE (14:12)
[2016-12-14] MEDS ORDERED: *HR* Propofol 200 MG/20 ML VIAL IVP ONE (14:12)
[2016-12-14] MEDS ORDERED: *HR* FentaNYL (PF) 100 MCG/2 ML VIAL ONE ×2 (14:12→16:41)
[2016-12-14] MEDS ORDERED: Lidocaine -MPF 2% 2 ML VIAL ONE (14:12)
[2016-12-14] MEDS ORDERED: Acetaminophen IV 1,000 MG/100 ML INFUS..BTL ONE (15:58)
[2016-12-14] MEDS ORDERED: Dexamethasone 4 MG/ML VIAL ONE (16:40)
[2016-12-14] MEDS ORDERED: Ondansetron 4 MG/2 ML VIAL ONE (16:40)
[2016-12-14] MEDS ORDERED: Clindamycin 900 MG/50 ML 900 MG/50 ML IV.SOLN IVPB ONE ×2 (16:45→17:26)
[2016-12-14] MEDS ORDERED: EPHEDrine 50 MG/ML VIAL ONE (16:58)
[2016-12-14] MEDS ORDERED: *HR* HYDROmorphone (PF) 1 MG/ML SYRINGE IVP PRN ×2 (17:20→19:02)
--- NOTE | 2016-12-14 18:24 | Anesthesia Evaluation Post Op ---
Date of Encounter: 12/14/16 Time of Encounter: 18:23 - Vital Signs Vital Signs: Last Vital Signs Temp 98.3 F 12/14/16 10:56 Pulse 71 12/14/16 10:56 Resp 18 12/14/16 10:56 BP 111/62 12/14/16 10:56 Pulse Ox 96 12/14/16 10:56 - Lungs Lungs: Clear Ascult./Percussion - Airway Airway: Non-obstructed - Cardiovascular Regular Rate - Mental Status Mental Status: Alert & Oriented, Answers Appropriately - Pain Pain Scale: 3 - Nausea Vomiting Nausea Vomiting: Not Present - Hydration Hydration: Ice chips - Discharge PostOp Status: Transfer Patient to floor
[2016-12-14] MEDS ORDERED: Naloxone 0.4 MG/ML INJ IVP PRN (19:02)
[2016-12-14] MEDS ORDERED: Dextrose Gel 15 GM PO PRN ×2 (19:02)
[2016-12-14] MEDS ORDERED: Nitroglycerin 0.4 MG TAB.SUBL SL PRN (19:02)
[2016-12-14] MEDS ORDERED: D5% in Water 1,000 ML IVC PRN (19:02)
[2016-12-14] MEDS ORDERED: Ondansetron 4 MG/2 ML VIAL IVP PRN (19:02)
[2016-12-14] MEDS ORDERED: Sennosides 8.6 MG TABLET PO PRN (19:02)
[2016-12-14] MEDS ORDERED: 0.9 % Sodium Chloride 1,000 ML IVC SCH (19:02)
[2016-12-14] MEDS ORDERED: *HR* Dextrose 50 % in Water (Syg) 50 ML SYRINGE IVP PRN (19:02)
[2016-12-14] MEDS ORDERED: Albuterol 2.5 MG/3 ML NEBULIZER IH PRN (19:02)
[2016-12-14] MEDS: Melatonin 3 MG TABLET PO SCH (19:58)
[2016-12-15] MEDS: *HR* Morphine 2 MG/ML SYRINGE IVP PRN (00:43)
[2016-12-15] MEDS: *HR* HYDROcodone/Acet 5/325 mg TABLET PO PRN ×2 (02:28→06:40)
[2016-12-15 05:51] LABS: Basophils % 0.1 %; Hematocrit 29.6 % (35.3-44.9); Hemoglobin 9.4 g/dL (11.5-15.4); Immature Granulocytes % 0.4 % (0-4); Immature Platelets 12.1 % (1.1-6.1); Lymphocytes # 0.6 K/mcL (0.6-4.6); Lymphocytes % 4.7 %; Mean Corpuscular HGB Conc 31.8 g/dL (31.6-35.5); Mean Corpuscular Hemoglobin 28.8 pg (28.0-33.3); Mean Corpuscular Volume 90.8 fL (83.0-100.0); Monocytes # 0.5 K/mcL (0.0-1.3); Neutrophils # 11.3 K/mcL (1.6-8.9); Platelet Count 134 K/mcL (140-400); Red Blood Count 3.26 M/mcL (3.82-4.97); Red Cell Distribution Width 13.9 % (11.5-14.5); Segmented Neutrophils % 90.8 %
[2016-12-15 06:09] LABS: BUN/Creatinine Ratio 25 (6-26); Blood Urea Nitrogen 21 mg/dL (7-20); Calcium 8.5 mg/dL (8.6-10.8); Carbon Dioxide 26 mEq/L (19-29); Chloride 100 mEq/L (98-109); Glucose 246 mg/dL (70-99); Magnesium 1.4 mg/dL (1.6-2.6); Osmolality,Calculated 287 (280-300); Phosphorous 2.9 mg/dL (2.3-4.7); Potassium 4.4 mEq/L (3.5-4.5); Sodium 133 mEq/L (136-145); eGFR For African Americans > 60 (> 60); eGFR For Non-African Americans > 60 (> 60)
[2016-12-15] MEDS ORDERED: Magnesium Sulfate 2 GM in D5% in Water 100 ML IVPB ONE (08:13)
[2016-12-15] MEDS: Isosorbide MONOnitrate (24 HR) 30 MG TAB.ER.24H PO SCH (08:29)
[2016-12-15] MEDS: Gabapentin 300 MG CAPSULE PO SCH ×3 (08:29→22:45)
[2016-12-15] MEDS: Aspirin Enteric Coated 81 MG Tablet PO SCH (08:29)
[2016-12-15] MEDS: Folic Acid 1 MG TABLET PO SCH (08:29)
[2016-12-15] MEDS: Lactobacillus 1 EACH CAP.SPRINK PO SCH (08:30)
[2016-12-15] MEDS: Metoprolol XL (24 HR) Succ 25 MG TAB.ER.24H PO SCH (08:30)
[2016-12-15] MEDS: Cholecalciferol (D-3) 1,000 UNIT TABLET PO SCH (08:30)
[2016-12-15] MEDS: (Biotin [Biotin] 5 MG) PO SCH (08:31)
[2016-12-15] MEDS: Insulin DETEMIR 100 UNIT/ML X5UNITS SQ SCH (08:31)
[2016-12-15] MEDS: Insulin LISPRO 300 UNITS/3 ML VIAL SQ SCH ×4 (08:32→22:46)
[2016-12-15] MEDS ORDERED: *HR* HYDROcodone/Acet 7.5/325 mg TABLET PO PRN (10:01)
--- NOTE | 2016-12-15 10:08 | Internal Med Progress Note ---
Date of Encounter: 12/15/16 Time of Encounter: 09:45 - Assessment and plan (1) Hip fracture, left Current Visit: Yes Status: Acute Assessment and plan: Acute left hip femoral neck fracture-POD #1 surgical repair Pain control (d/c IV morphine and continue Hydrocodone/Acetaminophen 7.5/325mg pO q6h prn severe pain) orthopedic evaluation appreciated DVT ppx with Lovenox SQ Qualifiers: Encounter type: initial encounter Fracture type: closed Qualified Code(s) : S72.002A - Fracture of unspecified part of neck of left femur, initial encounter for closed fracture (2) Right middle lobe pneumonia Current Visit: Yes Status: Acute Assessment and plan: CTA chest concerning for PNA clinically improving leukocytosis persists but improved from previous day d/c vancomycin and continue Levofloxacin f/u blood cultures will closely monitor Qualifiers: Pneumonia type: due to unspecified organism Qualified Code(s): J18.1 - Lobar pneumonia, unspecified organism (3) Hypertension Current Visit: Yes Status: Chronic Assessment and plan: BP within acceptable range continue home meds Qualifiers: Hypertension type: essential hypertension Qualified Code(s): I10 - Essential (primary) hypertension (4) DM type 2 (diabetes mellitus, type 2) Current Visit: No Status: Chronic Assessment and plan: continue ss insulin algorithm monitor FS and BG ADA diet Qualifiers: Diabetes mellitus complication status: without complication Diabetes mellitus mining consultant insulin use: with fci use Qualified Code(s): E11.9 - Type 2 diabetes mellitus without complications; Z79.4 - jail (current) use of insulin (5) Coronary artery disease Current Visit: Yes Status: Chronic Assessment and plan: patient has a history of coronary artery disease. Denies any chest pain. On aspirin, statin and metoprolol. Will continue these medications. Qualifiers: Coronary Disease-Associated Artery/Lesion type: [place] artery [place] vs. transplanted heart: [place] heart Associated angina: without angina Qualified Code(s): I25.10 - Atherosclerotic heart disease of [place] coronary artery without angina pectoris (6) COPD (chronic obstructive pulmonary disease) Current Visit: Yes Status: Chronic Assessment and plan: Chronic condition. Not in acute exacerbation. We will use O2 supplementation as needed. bronchodilators as needed. Qualifiers: COPD type: unspecified COPD Qualified Code(s): J44.9 - Chronic obstructive pulmonary disease, unspecified (7) Electrolyte abnormality Current Visit: Yes Status: Acute Assessment and plan: Hypomagenesemia Mg supplemented continue to monitor electrolytes and replace as needed - Subjective Interval history: Pt seen and examined at bedside. Resting in chair and reports of feeling better compared to previous day. States the PO pain medications are helping her more than the IV pain medications. Also reports of chronic history of sciatica due to which she has chronic lower back pain. POD #1 s/p left hip fracture repair. No overnight issues reported. - Constitutional Vitals: Temp Pulse Resp BP Pulse Ox 97.9 F 65 18 108/61 95 12/15/16 07:26 12/15/16 07:26 12/15/16 07:26 12/15/16 07:26 12/15/16 09:10 General appearance: Present: cooperative, A&O X 3, pleasant, no acute distress, answers questions appropriately - Head Head exam: Present: atraumatic, normocephalic - Eye Eye exam: Present: conjuntiva pink, sclera anicteric - Respiratory Respiratory exam: Absent: respiratory distress, wheezes - Cardiovascular Cardiovascular exam: Present: RRR, +S1, +S2. Absent: diastolic murmur, gallop, rubs, systolic murmur - GI/Abdominal GI/Abdominal exam: Present: normal bowel sounds, soft, no peritoneal signs. Absent: distended, tenderness - Extremities Exam Extremities exam: Present: warm, radial pulses palpable and symmetrical. Absent : calf tenderness - Neurological Exam Neurological exam: Present: alert, oriented X3 - Psychiatric Psychiatric exam: Present: normal affect, normal mood Internal Medicine: Result - Labs CBC & Chem 7: 12/15/16 05:22 12/15/16 05:22 Labs: Short CBC 12/15/16 Range/Units 05:22 WBC 12.4 H (4.3-11.1) K/mcL Hgb 9.4 L (11.5-15.4) g/dL Hct 29.6 L (35.3-44.9) % Plt Count 134 L (140-400) K/mcL Neutrophils # 11.3 H (1.6-8.9) K/mcL BMP 12/15/16 05:22 Sodium 133 L Potassium 4.4 Chloride 100 Carbon Dioxide 26 BUN 21 H Creatinine 0.84 Glucose 246 H Calcium 8.5 L - Impressions Impressions Hip X-Ray 12/14/16 10:46 IMPRESSION: Impacted left femoral neck fracture. No dislocation. Diffuse osteopenia. D/ / Janna Ireland MD / Janna Ireland MD Interpreting Provider: Janna Ireland MD Fluoroscopy 12/14/16 16:55 IMPRESSION: Intraprocedural fluoroscopic spot images as above. See separate procedure report for more information. D/ / Ghassan Conroy MD / Ghassan Conroy MD Interpreting Provider: Ghassan Conroy MD - VTE Documentation of Mechanical Device: Intermittent pneumatic compression device Consult Discharge Plan - Plan Referrals: Camacho Florence MD [Primary Care Provider] -
[2016-12-15] MEDS ORDERED: Vancomycin 1,000 MG in D5% in Water 250 ML IVPB SCH (11:00)
--- NOTE | 2016-12-15 16:38 | Orthopedics Progress Note ---
Date of Encounter: 12/15/16 Time of Encounter: 16:20 - Assessment and Plan (1) Hip fracture, left Current Visit: Yes Status: Acute POD#1 left hip pinning. Dressings to be changed tomorrow. Continue in therapy TTWB. Continue DVT prophylaxis lovenox x 2 weeks upon DC. Plan of DC to ECF tomorrow (Tiffany per patient). Continue pain control per hospitalist. Qualifiers: Encounter type: initial encounter Fracture type: closed Qualified Code(s) : S72.002A - Fracture of unspecified part of neck of left femur, initial encounter for closed fracture Subjective Principal diagnosis: POD#1 s/p left hip pinning Interval history: Patient doing well on exam with no concerns. States she feels much better and states she was up to bedside with therapy today. Objective Vital signs: Vital Signs Temp Pulse Resp BP Pulse Ox 12/15/16 16:25 98.6 F 66 14 126/61 96 12/15/16 11:21 97.7 F 60 14 116/45 12/15/16 09:10 95 12/15/16 07:26 97.9 F 65 18 108/61 95 12/15/16 05:15 99.0 F 73 19 136/75 99 12/15/16 00:44 98.2 F 74 19 119/50 95 12/14/16 20:15 98.5 F 75 18 104/61 98 12/14/16 19:45 98.8 F 87 18 120/68 95 12/14/16 19:15 97.6 F 70 19 121/69 93 12/14/16 18:37 98.9 F 71 18 108/48 96 12/14/16 18:27 70 18 108/46 96 12/14/16 18:17 72 18 114/57 94 12/14/16 18:07 97.9 F 71 18 137/64 97 Intake and Output 12/15/16 12/15/16 12/15/16 07:59 15:59 23:59 Intake Total 500 / 500 0 / 0 Output Total 700 / 700 450 / 450 Balance -200 / -200 -450 / -450 Intake: Oral 500 / 500 0 / 0 Output: Urine 450 / 450 Catheter 700 / 700 Other: Meal Breakfast Percent of Meal Consumed 20% # Voids 1 Blood Glucose* 263 257 211 Incision: clean and dry (dressings c/d/i with no visible drainage and no surrounding erythema, no calf tenderness to palpation. good dorsiflexion of foot , grossly NV intact) - Labs CBC & BMP: 12/15/16 05:22 12/15/16 05:22 Labs: Abnormal lab results WBC 12.4 K/mcL (4.3-11.1) H 12/15/16 05:22 RBC 3.26 M/mcL (3.82-4.97) L 12/15/16 05:22 Hgb 9.4 g/dL (11.5-15.4) L 12/15/16 05:22 Hct 29.6 % (35.3-44.9) L 12/15/16 05:22 Plt Count 134 K/mcL (140-400) L 12/15/16 05:22 Neutrophils # 11.3 K/mcL (1.6-8.9) H 12/15/16 05:22 Immature Plt Fraction 12.1 % (1.1-6.1) H 12/15/16 05:22 Sodium 133 mEq/L (136-145) L 12/15/16 05:22 BUN 21 mg/dL (7-20) H 12/15/16 05:22 Glucose 246 mg/dL (70-99) H 12/15/16 05:22 POC Glucose 257 (58-89) H 12/15/16 11:30 Calcium 8.5 mg/dL (8.6-10.8) L 12/15/16 05:22 Magnesium 1.4 mg/dL (1.6-2.6) L 12/15/16 05:22 AST 47 Units/L (5-34) H 12/13/16 01:19 Albumin 2.9 g/dL (3.5-5.0) L 12/13/16 01:19 Albumin/Globulin Ratio 0.9 (1.1-2.2) L 12/13/16 01:19 Ur Leukocyte Esterase Trace (Negative) H 12/12/16 17:28 Urine Microscopic WBC 3-5 per hpf (0-3) H 12/12/16 17:28 Ur Squamous Epith Cells Moderate per lpf (None-Few) H 12/12/16 17:28 - VTE Documentation of Mechanical Device: Intermittent pneumatic compression device Consult Discharge Plan - Plan Referrals: Camacho Florence MD [Primary Care Provider] -
[2016-12-15] MEDS: *HR* Enoxaparin 30 MG/0.3 ML SYRINGE SQ SCH (17:16)
--- NOTE | 2016-12-15 22:25 | Event Note ---
Date of Encounter: 12/15/16 Time of Encounter: 22:23 Called to see patient for HR fluctuating between 90 and 130. EKG shows Sinus arrhythmia with frequent PVC's. Patient is asymptomatic and denies CP or SOB. I ordered a one time dose of metoprolol 25 mg now. I also ordered BMP and Magnesium level. Will monitor and re-evaluate as necessary.
[2016-12-15 22:43] LABS: BUN/Creatinine Ratio 28 (6-26); Blood Urea Nitrogen 25 mg/dL (7-20); Calcium 8.8 mg/dL (8.6-10.8); Carbon Dioxide 27 mEq/L (19-29); Chloride 101 mEq/L (98-109); Glucose 225 mg/dL (70-99); Magnesium 1.8 mg/dL (1.6-2.6); Osmolality,Calculated 291 (280-300); Sodium 135 mEq/L (136-145); eGFR For African Americans > 60 (> 60); eGFR For Non-African Americans > 60 (> 60)
[2016-12-15] MEDS: Melatonin 3 MG TABLET PO SCH (22:44)
[2016-12-16] MEDS: *HR* Enoxaparin 30 MG/0.3 ML SYRINGE SQ SCH ×2 (06:22→16:46)
[2016-12-16 06:23] LABS: Basophils % 0.2 %; Eosinophils # 0.1 K/mcL (0.0-0.6); Hematocrit 28.1 % (35.3-44.9); Hemoglobin 8.7 g/dL (11.5-15.4); Immature Granulocytes % 0.3 % (0-4); Lymphocytes # 1.5 K/mcL (0.6-4.6); Lymphocytes % 11.3 %; Mean Corpuscular Hemoglobin 27.8 pg (28.0-33.3); Mean Corpuscular Volume 89.8 fL (83.0-100.0); Mean Platelet Volume 11.6 fL (9.4-12.4); Monocytes # 1.4 K/mcL (0.0-1.3); Monocytes % 10.6 %; Neutrophils # 9.8 K/mcL (1.6-8.9); Platelet Count 157 K/mcL (140-400); Red Blood Count 3.13 M/mcL (3.82-4.97); Red Cell Distribution Width 14.2 % (11.5-14.5); Segmented Neutrophils % 76.6 %
[2016-12-16 06:33] LABS: BUN/Creatinine Ratio 28 (6-26); Blood Urea Nitrogen 23 mg/dL (7-20); Calcium 8.9 mg/dL (8.6-10.8); Carbon Dioxide 29 mEq/L (19-29); Chloride 104 mEq/L (98-109); Glucose 199 mg/dL (70-99); Magnesium 1.9 mg/dL (1.6-2.6); Osmolality,Calculated 295 (280-300); Phosphorous 1.6 mg/dL (2.3-4.7); Potassium 4.1 mEq/L (3.5-4.5); Sodium 138 mEq/L (136-145); eGFR For African Americans > 60 (> 60); eGFR For Non-African Americans > 60 (> 60)
[2016-12-16] MEDS: Isosorbide MONOnitrate (24 HR) 30 MG TAB.ER.24H PO SCH (08:14)
[2016-12-16] MEDS: Aspirin Enteric Coated 81 MG Tablet PO SCH (08:14)
[2016-12-16] MEDS: Lactobacillus 1 EACH CAP.SPRINK PO SCH (08:15)
[2016-12-16] MEDS: (Biotin [Biotin] 5 MG) PO SCH (08:15)
[2016-12-16] MEDS: Folic Acid 1 MG TABLET PO SCH (08:15)
[2016-12-16] MEDS: Cholecalciferol (D-3) 1,000 UNIT TABLET PO SCH (08:15)
[2016-12-16] MEDS: Metoprolol XL (24 HR) Succ 25 MG TAB.ER.24H PO SCH (08:15)
[2016-12-16] MEDS: Gabapentin 300 MG CAPSULE PO SCH ×2 (08:15→16:04)
[2016-12-16] MEDS: Insulin LISPRO 300 UNITS/3 ML VIAL SQ SCH ×3 (08:16→16:46)
[2016-12-16] MEDS: Insulin DETEMIR 100 UNIT/ML X5UNITS SQ SCH (08:24)
[2016-12-16] MEDS ORDERED: Levofloxacin 750 MG/150 ML 750 MG/150 ML BAG IVPB SCH (10:00)
--- NOTE | 2016-12-16 10:03 | Discharge Summary ---
Date of Encounter: 12/16/16 Time of Encounter: 09:15 - Discharge Diagnosis (1) Hip fracture, left Priority: Primary Status: Acute Qualifiers: Encounter type: initial encounter Fracture type: closed Qualified Code(s) : S72.002A - Fracture of unspecified part of neck of left femur, initial encounter for closed fracture (2) Right middle lobe pneumonia Priority: Secondary Status: Acute Qualifiers: Pneumonia type: due to unspecified organism Qualified Code(s): J18.1 - Lobar pneumonia, unspecified organism (3) Hypertension Priority: Secondary Status: Chronic Qualifiers: Hypertension type: essential hypertension Qualified Code(s): I10 - Essential (primary) hypertension (4) DM type 2 (diabetes mellitus, type 2) Priority: Secondary Status: Chronic Qualifiers: Diabetes mellitus complication status: without complication Diabetes mellitus snf insulin use: with snf use Qualified Code(s): E11.9 - Type 2 diabetes mellitus without complications; Z79.4 - senior living (current) use of insulin (5) Coronary artery disease Priority: Secondary Status: Chronic Qualifiers: Coronary Disease-Associated Artery/Lesion type: ute artery [place] vs. transplanted heart: ute heart Associated angina: without angina Qualified Code(s): I25.10 - Atherosclerotic heart disease of ute coronary artery without angina pectoris (6) COPD (chronic obstructive pulmonary disease) Priority: Secondary Status: Chronic Qualifiers: COPD type: unspecified COPD Qualified Code(s): J44.9 - Chronic obstructive pulmonary disease, unspecified (7) Electrolyte abnormality Priority: Secondary Status: Acute - Discharge Medications Prescriptions: Enoxaparin [Lovenox] 30 mg SQ Q12HCO #28 HYDROcodone/Acet 5/325 mg [Addison 5-325 mg] 1 tab PO Q6H PRN #20 tab PRN Reason: Pain levoFLOXacin [Levaquin] 750 mg PO DAILY #7 tablet Home Medications: Aspirin [Adult Low Dose Aspirin EC] 81 mg PO DAILY 07/08/15 [History] Atorvastatin [Lipitor] 40 mg PO HS 07/08/15 [History] Gabapentin [Neurontin] 600 mg PO TID 07/08/15 [History] Insulin Glargine,Hum.rec.anlog [Lantus Solostar] 6 unit SQ DAILY 07/08/15 [ History] Isosorbide MONOnitrate (24 HR) [Imdur] 15 mg PO DAILY 07/08/15 [History] Albuterol Sulfate [Albuterol Inhaler] 1 puff IH Q4H PRN #0 aerosol 03/20/16 [Rx] Melatonin 10 mg PO HS tablet 03/20/16 [Rx] Levothyroxine [Synthroid] 150 mcg PO 0630 10/06/16 [History] Ascorbic Acid [Vitamin C] 1 ml PO DAILY 12/12/16 [History] Biotin 5 mg PO DAILY 12/12/16 [History] Calcium Citrate/Vitamin D3 [Calcium Citrate - Vit D Caplet] 1 each PO DAILY [History] Cholecalciferol (D-3) [Vitamin D] 2,000 unit PO DAILY 12/12/16 [History] Cranberry Conc/C/Bacill Coag [Cranberry Tablet] 125 mg PO DAILY 12/12/16 [ History] Cyanocobalamin (Vitamin B-12) [Vitamin B12] 500 mcg PO DAILY 12/12/16 [History] DULoxetine [Cymbalta] 90 mg PO DAILY 12/12/16 [History] Folic Acid [FA-8] 0.8 mg PO DAILY 12/12/16 [History] Lactobacillus Combination No.9 [Adult 50 + Probiotic] 1 each PO DAILY 12/12/16 [ History] Metoprolol Succinate 25 mg PO DAILY 12/12/16 [History] Multivit-Min/Iron/Folic/Lutein [Centrum Silver Women Tablet] 1 each PO DAILY [History] Nitroglycerin [Nitrostat] 0.4 mg SL AD PRN 12/12/16 [History] Omeprazole [PriLOSEC] 40 mg PO DAILY 12/12/16 [History] Enoxaparin [Lovenox] 30 mg SQ Q12HCO #28 12/16/16 [Rx] HYDROcodone/Acet 5/325 mg [Addison 5-325 mg] 1 tab PO Q6H PRN #20 tab 12/16/16 [Rx ] levoFLOXacin [Levaquin] 750 mg PO DAILY #7 tablet 12/16/16 [Rx] Allergies/Adverse Reactions: nitrofurantoin [From Macrobid] Allergy (Verified 12/12/16 13:41) Rash Penicillins Allergy (Verified 12/12/16 13:41) Anaphylaxis Sulfa (Sulfonamide Antibiotics) Allergy (Verified 12/12/16 13:41) Rash azithromycin [From Zithromax] Adverse Reaction (Verified 12/12/16 13:41) Nausea doxycycline Adverse Reaction (Verified 12/12/16 13:41) Diarrhea Procedures/tests Complete & Pending: Procedures Performed prior 72 hours Category Date Time Status CTA chest [CT angio chest] [CT] Stat Cat Scan 12/13/16 17:00 Draft EKG [ECG 12 lead ECG] [ECG] Stat Y 12/15/16 21:36 Completed EV echocardiogram Routine Y 12/13/16 09:59 Completed Date of admission: 12/12/16 17:20 Primary care physician: Camacho Florence MD Consults: 12/14/16 19:02 Consult to Occupational Therapy [CONS] Routine Comment: Evaluate, develop and implement POC Reason for Consult: post hip surgery Consult to Orthopedic Navigator [CONS] [CONS] Routine Consult to Physical Therapy [CONS] Routine Comment: Evaluate, develop and implement POC Reason for Consult: post hip surgery; TTWB Consult to Senior Examiner [CONS] Routine Reason for SW Consult: post -op hip fracture RT Post Op Consult [CONS] Routine Discharging clinician: Shefali Piedra Anticipated date of discharge: 12/16/16 - Patient Status Disposition: Transfer SNF Condition: Good Functional capacity at discharge: uses cane/walker Overall status at discharge: patient is progressing back to baseline - Discharge Instructions Follow Up With: Camacho Florence MD [Primary Care Provider] - Additional Instructions: Please follow up with orthopedic surgery within one week after your discharge from the hospital. Please follow up with your PCP within one week after your discharge from the hospital. Please continue oral antibiotics as prescribed. Please continue DVT prophylaxis (Enoxaparin SQ BID) as per orthopedic surgery for two weeks. Please continue all your home medications as prescribed by your primary care physician. - Diet and Activity Activity: as per physical therapy Diet: diabetic diet Hospital course: Ms. Isaacs is a 86 year old female with PMH Of arthritis,COPD, asthma, CAD, DM admitted for left hip fracture. She was also found to have RML PNA during her pre-op clearance work up. She underwent surgical fixation of the left hip by orthopedic surgery and was started on IV abx for PNA. She responded well to therapy. She was evaluated by physical therapy and ECF was recommended. Pt also continued to require O2 supplementation throughout the course of her hospitalization and will be discharged to ECF with oxygen therapy. She will get evaluated at the ECF for home O2 requirement. She will be discharged to ECF with oral abx, DVT ppx as per ortho. She is to follow up with ortho and pcp after discharge. - Time Spent with Patient Total time spent providing and/or coordinating discharge services: Greater than 30 minutes - Constitutional Vitals: Temp Pulse Resp BP Pulse Ox 97.9 F 96 16 123/65 97 12/16/16 07:49 12/16/16 07:49 12/16/16 07:49 12/16/16 07:49 12/16/16 07:49 General appearance: Present: cooperative, A&O X 3, pleasant, no acute distress, answers questions appropriately - Head Head exam: Present: atraumatic, normocephalic - Eye Eye exam: Present: conjuntiva pink, sclera anicteric - Respiratory Respiratory exam: Absent: respiratory distress, wheezes - Cardiovascular Cardiovascular exam: Present: RRR, +S1, +S2. Absent: diastolic murmur, gallop, rubs, systolic murmur - GI/Abdominal GI/Abdominal exam: Present: normal bowel sounds, soft, no peritoneal signs. Absent: distended, tenderness - Extremities Exam Extremities exam: Present: warm, radial pulses palpable and symmetrical - Neurological Exam Neurological exam: Present: alert, oriented X3 - Psychiatric Psychiatric exam: Present: normal affect, normal mood - VTE Documentation of Mechanical Device: Intermittent pneumatic compression device
--- NOTE | 2016-12-16 10:20 | Physician Discharge Referral ---
ExtendedCare Referral Info Transfer To: [facility] Provider in Charge after Transfer: PCP - Diagnosis (1) Hip fracture, left Priority: Primary Status: Acute (2) Right middle lobe pneumonia Priority: Secondary Status: Acute (3) Hypertension Priority: Secondary Status: Chronic (4) DM type 2 (diabetes mellitus, type 2) Priority: Secondary Status: Chronic (5) Coronary artery disease Priority: Secondary Status: Chronic (6) COPD (chronic obstructive pulmonary disease) Priority: Secondary Status: Chronic (7) Electrolyte abnormality Priority: Secondary Status: Acute - Transfer Medications Prescriptions: Enoxaparin [Lovenox] 30 mg SQ Q12HCO #28 HYDROcodone/Acet 5/325 mg [Francis 5-325 mg] 1 tab PO Q6H PRN #20 tab PRN Reason: Pain levoFLOXacin [Levaquin] 750 mg PO DAILY #7 tablet Home Medications: Aspirin [Adult Low Dose Aspirin EC] 81 mg PO DAILY 07/08/15 [History] Atorvastatin [Lipitor] 40 mg PO HS 07/08/15 [History] Gabapentin [Neurontin] 600 mg PO TID 07/08/15 [History] Insulin Glargine,Hum.rec.anlog [Lantus Solostar] 6 unit SQ DAILY 07/08/15 [ History] Isosorbide MONOnitrate (24 HR) [Imdur] 15 mg PO DAILY 07/08/15 [History] Albuterol Sulfate [Albuterol Inhaler] 1 puff IH Q4H PRN #0 aerosol 03/20/16 [Rx] Melatonin 10 mg PO HS tablet 03/20/16 [Rx] Levothyroxine [Synthroid] 150 mcg PO 0630 10/06/16 [History] Ascorbic Acid [Vitamin C] 1 ml PO DAILY 12/12/16 [History] Biotin 5 mg PO DAILY 12/12/16 [History] Calcium Citrate/Vitamin D3 [Calcium Citrate - Vit D Caplet] 1 each PO DAILY [History] Cholecalciferol (D-3) [Vitamin D] 2,000 unit PO DAILY 12/12/16 [History] Cranberry Conc/C/Bacill Coag [Cranberry Tablet] 125 mg PO DAILY 12/12/16 [ History] Cyanocobalamin (Vitamin B-12) [Vitamin B12] 500 mcg PO DAILY 12/12/16 [History] DULoxetine [Cymbalta] 90 mg PO DAILY 12/12/16 [History] Folic Acid [FA-8] 0.8 mg PO DAILY 12/12/16 [History] Lactobacillus Combination No.9 [Adult 50 + Probiotic] 1 each PO DAILY 12/12/16 [ History] Metoprolol Succinate 25 mg PO DAILY 12/12/16 [History] Multivit-Min/Iron/Folic/Lutein [Centrum Silver Women Tablet] 1 each PO DAILY [History] Nitroglycerin [Nitrostat] 0.4 mg SL AD PRN 12/12/16 [History] Omeprazole [PriLOSEC] 40 mg PO DAILY 12/12/16 [History] Enoxaparin [Lovenox] 30 mg SQ Q12HCO #28 12/16/16 [Rx] HYDROcodone/Acet 5/325 mg [Francis 5-325 mg] 1 tab PO Q6H PRN #20 tab 12/16/16 [Rx ] levoFLOXacin [Levaquin] 750 mg PO DAILY #7 tablet 12/16/16 [Rx] Allergies/Adverse Reactions: nitrofurantoin [From Macrobid] Allergy (Verified 12/12/16 13:41) Rash Penicillins Allergy (Verified 12/12/16 13:41) Anaphylaxis Sulfa (Sulfonamide Antibiotics) Allergy (Verified 12/12/16 13:41) Rash azithromycin [From Zithromax] Adverse Reaction (Verified 12/12/16 13:41) Nausea doxycycline Adverse Reaction (Verified 12/12/16 13:41) Diarrhea - Respiratory Orders Oxygen / L per min (3L/min) Smoking Cessation: Smoking cessation has been advised. For more information, call the [place] Tobacco Quit Line at 8-044-ZYAG-NOW. - Rehabiliation Orders Other: Please follow up with orthopedic surgery within one week after your discharge from the hospital. Please follow up with your PCP within one week after your discharge from the hospital. Please continue oral antibiotics as prescribed. Please continue DVT prophylaxis (Enoxaparin SQ BID) as per orthopedic surgery for two weeks. Please continue all your home medications as prescribed by your primary care physician. Please evaluate the need for home oxygen prior to discharge from [facility] CERTIFICATION: I certify that the transfer of the above named patient to an Extended Care Facility is necessary for the continuing treatment of the diagnosis listed. The above information is true and accurate reflection of patient's current condition. Confidential - Redisclosure prohibited without a patient's written consent.
--- NOTE | 2016-12-16 15:30 | Electrocardiograph Report ---
[address] [place], [place] [address] Test Date: 2016-12-15 Pat Name: September Department: 114 Room: [facility] Gender: F Relay Record Clerk: : 1930 Requested By: Aguilar Ruano Order Number: [id number] Reading MD: Mendez Lopez MD Measurements Intervals [place] Rate: 96 P: 27 NE: 163 QRS: -21 QRSD: 101 T: 74 QT: 335 QTc: 389 Interpretive Statements SINUS RHYTHM WITH FREQUENT SUPRAVENTRICULAR PREMATURE COMPLEXES BORDERLINE LEFT AXIS DEVIATION Electronically Signed On 12-16-2016 15:28:50 EDT by Mendez Lopez MD
--- NOTE | 2016-12-16 16:22 | Operative Note ---
Date of procedure: 12/14/16 Pre-op diagnosis: Left hip nondisplaced femoral neck fracture, impacted Post-op diagnosis: same Procedure: Left hip percutaneous pinning Implants: Shayne 6.5 mm an 8.0 mm cannulated partially threaded screws Anesthesia: DIPAKA Surgeon: Nikita Leung Estimated blood loss (cc): 3 Specimen: 0 Condition: stable Disposition: PACU Procedure in Detail: The patient received IV antibiotics in the holding area, she was brought to the operating room, a sign in was performed, and she underwent general anesthesia on the hospital bed. The patient was then transferred to the OR fracture table in supine position. The patient was positioned against the groin post, with traction applied to the left lower extremity. The contralateral lower extremity was then placed onto a well-padded leg gates keeping her hip flexed and abducted. Once the patient was well positioned, the x-ray C-arm was brought in and fluoroscopy shots of the hip were taken, adjusting the lower extremity, making sure we will get a good AP and lateral views. Live fluoroscopy was also checked with the hip show it was stable in the valgus impacted position. The left hip and thigh down to the knee was then prepped and draped in standard technique. A timeout was performed. The guidewire was placed over the hip and it's position was checked under fluoroscopy. The guidewires was placed percutaneously through skin and driven from the lateral cortex paralleling the inferior neck and staying central on the AP plane. This was driven up to the head, its position checked on AP and lateral views. A 3 cm longitudinal incisions then made going superior to the guidewire. The depth was measured, next I overdrilled the guidewire and placed the appropriate length 6.5 mm cannulated screw with short threads. The screw was slightly long and changed from an 85 to a 75. Another guidewire was then placed superior and anterior, steps were repeated to place another screw, using a 75 mm long screw.. Finally a third guidewire was placed posterior to the second wire, and another 6.5 mm screw was placed in standard technique. Screws were changed out if that too close to the articular surface of the head. Final AP and lateral shots were taken and saved, showing good screw placement. The third screw slightly too long for screw slightly short. We decided to change the screws out. In removing for screw second him screws removed and screw was felt to be slightly loose. Instead a stent 8.0 mm short threaded cannulated screw, by 80 mm long. Final fluoroscopy shots were taken and saved showing good screw placement with a stable fracture pattern. The wound was irrigated normal saline, the subcutaneous tissues closed with 2-0 Vicryl sutures, and skin stapled. Sterile dressings were applied. The patient was then transferred to hospital bed where she was extubated and taken to recovery room in stable condition.
[2016-12-16 16:33] VITALS: BP 108/71
== END 2016-12-16 18:15 | DRG 480 ==
LOC: 3NENU → SUATTDRO 17:20
PROVIDERS: ADMIT Internal Medicine Endocrinology, Diabetes & Metabolism; ATTEND Internal Medicine